=== PATIENT | male | born 1950 | race African-American/Black ===

== ENCOUNTER 2016-06-29 03:23 | Emergency (ER) | payer MEDICAID, OTHER ==
[~2016-06-29] VITALS: Ht 190.5 cm; Wt 95.0 kg
[2016-06-29] MEDS ORDERED: TETANUS, DIPHTHERIA, PERTUSSIS VAC/PF 0.5ML (>7YR OLD) IM ONE (05:45)
[2016-06-29] MEDS ORDERED: KETOROLAC 30MG/ML VIAL IM ONE (05:45)
[2016-06-29] MEDS ORDERED: BACITRACIN ZINC OINT UDPKT TOP ONE (05:45)
[2016-06-29 06:22] VITALS: BP 158/90
== END 2016-06-29 06:23 | disposition home or self-care (01) ==
LOC: ER 03:40
DX: S09.90XA Unspecified injury of head, initial encounter (principal); S09.93XA Unspecified injury of face, initial encounter; S66.912A Strain of unspecified muscle, fascia and tendon at wrist and hand level, left hand, initial encounter; E11.9 Type 2 diabetes mellitus without complications; Y00.XXXA Assault by blunt object, initial encounter; Y92.488 Other paved roadways as the place of occurrence of the external cause
CPT/HCPCS: 70450; 70486; 73130; 90471; 90715; 96372; 99284; J1885; Z7610